=== PATIENT | female | born 1975 | race Caucasian/White ===

== ENCOUNTER 2018-04-20 08:28 | Emergency (ER) | payer OTHER ==
[~2018-04-20] VITALS: Ht 175.3 cm; Wt 59.5 kg
[~2018-04-20 08:28] MED LIST: ARIP1TAB5 PO; TAB-TAB PO; Z.0.BCPILL PO
[2018-04-20 08:37] VITALS: BP 108/74; PULSE 80; RESP 16; TEMP 98.3; O2SAT 97
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
[2018-04-20] MEDS ORDERED: IBUP1TAB7 PO (09:06)
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
[2018-04-20] MEDS ORDERED: ROBA750T PO (10:46)
[2018-04-20] MEDS ORDERED: MOBI15TA PO (10:46)
== END 2018-04-20 11:06 | disposition home or self-care (01) ==
LOC: PHED 08:28
DX: S16.1XXA Strain of muscle, fascia and tendon at neck level, initial encounter (principal); S39.012A Strain of muscle, fascia and tendon of lower back, initial encounter; S29.012A Strain of muscle and tendon of back wall of thorax, initial encounter; R51 Headache; V89.2XXA Person injured in unspecified motor-vehicle accident, traffic, initial encounter; G89.29 Other chronic pain; M54.9 Dorsalgia, unspecified; Z85.828 Personal history of other malignant neoplasm of skin
CPT/HCPCS: 70450; 72125; 72128; 72131; 99283

== ENCOUNTER 2018-05-02 11:19 | Emergency (ER) | payer OTHER ==
[~2018-05-02] VITALS: Ht 175.3 cm; Wt 59.0 kg
[~2018-05-02 11:19] MED LIST changes: -ARIP1TAB5 PO; +IBUP1TAB7 PO; +MOBI15TA PO; +ROBA750T PO; -TAB-TAB PO; -Z.0.BCPILL PO
[2018-05-02 11:32] VITALS: BP 134/83; PULSE 113; RESP 16; TEMP 98; O2SAT 97
--- NOTE | 2018-05-02 11:58 | PD ---
HPI Chief Complaint: Psychiatric Symptoms Time Seen by Provider: 11:38 Travel History International Travel<30 days: No Contact w/Intl Traveler<30days: No Traveled to known affect area: No History of Present Illness HPI 42-year-old female presents emergency department under the Villalobos act for reported suicidal ideation. Patient reportedly told someone incompetence last evening something that was misunderstood according to the patient. She denies suicidal or homicidal ideation at this time. She has no significant medical problems. She has no complaints medically. She is allergic to sulfa and codeine. PFSH Past Medical History Blood Disorders: No Cancer: Yes (SKIN) Cardiovascular Problems: No Diminished Hearing: No Endocrine: No Genitourinary: No Immune Disorder: No Implanted Vascular Access Dvce: No Musculoskeletal: Yes Neurologic: No Reproductive: No Respiratory: No ?: Unknown Past Surgical History Oral Surgery: Yes (wisdom teeth) Other Surgery: Yes (skin cancer removed from left side of face) Social History Alcohol Use: Yes (occas. wine) Tobacco Use: No Substance Use: No Allergies-Medications (Allergen,Severity, Reaction): Coded Allergies: Sulfa (Sulfonamide Antibiotics) (Unverified Allergy, Intermediate, HIVES, 04/20/18) codeine (Unverified Allergy, Mild, ELEVATED HEART RATE, 04/20/18) sulfamethoxazole (Verified Allergy, Unknown, Hives, 05/02/18) trimethoprim (Verified Allergy, Unknown, Hives, 05/02/18) Reported Meds & Prescriptions Reported Meds & Active Scripts Active Robaxin (Methocarbamol) 750 Mg Tab 750 Mg PO QID Mobic (Meloxicam) 15 Mg Tab 15 Mg PO DAILY Reported Ibuprofen 800 Mg Tab 800 Mg PO Q8H PRN Review of Systems Except as stated in HPI: all other systems reviewed are Neg General / Constitutional: No: Fever Eyes: No: Visual changes HENT: No: Headaches Cardiovascular: No: Chest Pain or Discomfort Respiratory: No: Shortness of Breath Gastrointestinal: No: Abdominal Pain Genitourinary: No: Dysuria Musculoskeletal: No: Pain Skin: No Rash Neurologic: No: Weakness Psychiatric: No: Depression Endocrine: No: Polydipsia Hematologic/Lymphatic: No: Easy Bruising Physical Exam Narrative GENERAL: Patient appears frustrated but otherwise in no acute distress. SKIN: Warm and dry. Normal color. Normal turgor. HEAD: Atraumatic. Normocephalic. EYES: Pupils equal and round. No scleral icterus. No injection or drainage. ENT: No nasal bleeding or discharge. Mucous membranes pink and moist. Pharynx is clear. Airways patent NECK: Trachea midline. No JVD. CARDIOVASCULAR: Regular rate and rhythm. RESPIRATORY: No accessory muscle use. Clear to auscultation. Breath sounds equal bilaterally. MUSCULOSKELETAL: Extremities without clubbing, cyanosis, or edema. No obvious deformities. NEUROLOGICAL: Awake and alert. No obvious cranial nerve deficits. Motor grossly within normal limits. Five out of 5 muscle strength in the arms and legs. Normal speech. PSYCHIATRIC: Appropriate mood and affect; insight and judgment normal. Data Data Last Documented VS Vital Signs Date Time Temp Pulse Resp B/P (MAP) Pulse Ox O2 Delivery O2 Flow Rate FiO2 05/02/18 11:32 98.0 113 16 134/83 (100) 97 Orders Orders Complete Blood Count With Diff (05/02/18 11:38) Comprehensive Metabolic Panel (05/02/18 11:38) Thyroid Stimulating Hormone (05/02/18 11:38) Urinalysis - C+S If Indicated (05/02/18 11:38) Psych Screen (05/02/18 11:38) Drug Screen, Random Urine (05/02/18 11:38) Alcohol (Ethanol) (05/02/18 11:38) MDM Medical Decision Making Medical Screen Exam Complete: Yes Emergency Medical Condition: Yes Differential Diagnosis Villalobos act. Suicidal ideation. Medical screening for psychiatric evaluation. Narrative Course Patient appears medically stable at time of exam. Labs ordered per protocol. Patient is medically cleared for psychiatric evaluation. Condition: Stable Daniel Robles May 02, 2018 11:57
[2018-05-02 12:58] LABS: AUTOMATED NEUTROPHIL # 5.7 TH/MM3 (1.8-7.7); BASOPHIL % 0.5 % (0.0-2.0); EOSINOPHIL % 0.6 % (0.0-4.0); HEMATOCRIT 38.5 % (35.0-46.0); LYMPHOCYTE # 1.2 TH/MM3 (1.0-4.8); MEAN CELL VOLUME 88.3 FL (80.0-100.0); MEAN CORPUSCULAR HEMOGLOBIN 29.8 PG (27.0-34.0); MEAN CORPUSCULAR HGB CONC 33.8 % (32.0-36.0); MONO % 6.8 % (0.0-8.0); MONOCYTE # 0.5 TH/MM3 (0-0.9); NEUT % 76.1 % (16.0-70.0); PLATELET COUNT 325 TH/MM3 (150-450); RED BLOOD COUNT 4.36 MIL/MM3 (4.00-5.30); RED CELL DISTRIBUTION WIDTH 14.5 % (11.6-17.2); WHITE BLOOD COUNT 7.4 TH/MM3 (4.0-11.0)
[2018-05-02 13:13] LABS: ALBUMIN 4.5 GM/DL (3.4-5.0); AST (GOT) 23 U/L (15-37); BICARBONATE 26.1 MEQ/L (21.0-32.0); BLOOD UREA NITROGEN 4 MG/DL (7-18); CALCIUM 9.2 MG/DL (8.5-10.1); CHLORIDE 104 MEQ/L (98-107); CREATININE 0.96 MG/DL (0.50-1.00); GLOMERULAR FILTRATION RATE 63 ML/MIN (>89); GLUCOSE,RANDOM 83 MG/DL (74-106); SODIUM (NA) 140 MEQ/L (136-145)
[2018-05-02 13:25] LABS: ALKALINE PHOSPHATASE 75 U/L (45-117); ALT (GPT) 25 U/L (10-53); TOTAL BILIRUBIN ADULT 0.4 MG/DL (0.2-1.0); TOTAL PROTEIN 8.2 GM/DL (6.4-8.2)
[2018-05-02 14:05] VITALS: BP 123/88; PULSE 81; RESP 18; TEMP 97.7; O2SAT 99
[2018-05-02 17:41] VITALS: BP 127/81; PULSE 75; RESP 16; O2SAT 100
[2018-05-02 18:54] LABS: BACTERIA, URINE MANY /hpf; BILIRUBIN, URINE NEG (NEG); BLOOD, URINE NEG (NEG); GLUCOSE,URINE NEG (NEG); KETONE, URINE NEG (NEG); NITRITE,URINE NEG (NEG); SQUAMOUS EPITHELIAL CELL URINE 1 /hpf (0-5); URINE COLOR LIGHT-YELLOW (YELLW/STRAW); URINE LEUKOCYTE ESTERASE NEG (NEG)
[2018-05-02 22:22] VITALS: BP 134/83; PULSE 75; RESP 18; O2SAT 98
[2018-05-03 02:14] VITALS: BP 110/73; PULSE 64; RESP 20; O2SAT 97
[2018-05-03 06:27] VITALS: BP 125/80; PULSE 83; RESP 18; O2SAT 98
--- NOTE | 2018-05-03 10:08 | PD ---
Physical Exam Date Seen by Provider: May 03, 2018 Time Seen by Provider: 10:05 Narrative 42-year-old female previously medically cleared for psychiatric evaluation under the Villalobos act, has been evaluated by psychiatric staff and deemed stable for discharge at this time. Patient remains medically stable for discharge. Follow-up will be based on psychiatric note. Data Data Last Documented VS Vital Signs Date Time Temp Pulse Resp B/P (MAP) Pulse Ox O2 Delivery O2 Flow Rate FiO2 05/03/18 06:27 83 18 125/80 (95) 98 Room Air 05/02/18 14:05 97.7 Orders Orders Complete Blood Count With Diff (05/02/18 11:38) Comprehensive Metabolic Panel (05/02/18 11:38) Thyroid Stimulating Hormone (05/02/18 11:38) Urinalysis - C+S If Indicated (05/02/18 11:38) Psych Screen (05/02/18 11:38) Drug Screen, Random Urine (05/02/18 11:38) Alcohol (Ethanol) (05/02/18 11:38) Diet Regular Basic (05/02/18 Dinner) Urine Culture (05/02/18 18:15) Diet Regular Basic (05/03/18 Breakfast) Labs Laboratory Tests Test 05/02/18 12:50 05/02/18 18:15 White Blood Count 7.4 TH/MM3 Red Blood Count 4.36 MIL/MM3 Hemoglobin 13.0 GM/DL Hematocrit 38.5 % Mean Corpuscular Volume 88.3 FL Mean Corpuscular Hemoglobin 29.8 PG Mean Corpuscular Hemoglobin Concent 33.8 % Red Cell Distribution Width 14.5 % Platelet Count 325 TH/MM3 Mean Platelet Volume 7.0 FL Neutrophils (%) (Auto) 76.1 % Lymphocytes (%) (Auto) 16.0 % Monocytes (%) (Auto) 6.8 % Eosinophils (%) (Auto) 0.6 % Basophils (%) (Auto) 0.5 % Neutrophils # (Auto) 5.7 TH/MM3 Lymphocytes # (Auto) 1.2 TH/MM3 Monocytes # (Auto) 0.5 TH/MM3 Eosinophils # (Auto) 0.0 TH/MM3 Basophils # (Auto) 0.0 TH/MM3 CBC Comment DIFF FINAL Differential Comment Blood Urea Nitrogen 4 MG/DL Creatinine 0.96 MG/DL Random Glucose 83 MG/DL Total Protein 8.2 GM/DL Albumin 4.5 GM/DL Calcium Level 9.2 MG/DL Alkaline Phosphatase 75 U/L Aspartate Amino Transf (AST/SGOT) 23 U/L Alanine Aminotransferase (ALT/SGPT) 25 U/L Total Bilirubin 0.4 MG/DL Sodium Level 140 MEQ/L Potassium Level 4.3 MEQ/L Chloride Level 104 MEQ/L Carbon Dioxide Level 26.1 MEQ/L Anion Gap 10 MEQ/L Estimat Glomerular Filtration Rate 63 ML/MIN Thyroid Stimulating Hormone 3rd Gen 1.080 uIU/ML Ethyl Alcohol Level LESS THAN 3 MG/DL Urine Color LIGHT-YELLOW Urine Turbidity CLEAR Urine pH 6.0 Urine Specific [place] 1.005 Urine Protein NEG mg/dL Urine Glucose (UA) NEG mg/dL Urine Ketones NEG mg/dL Urine Occult Blood NEG Urine Nitrite NEG Urine Bilirubin NEG Urine Urobilinogen LESS THAN 2.0 MG/DL Urine Leukocyte Esterase NEG Urine RBC 1 /hpf Urine WBC 3 /hpf Urine Squamous Epithelial Cells 1 /hpf Urine Bacteria MANY /hpf Microscopic Urinalysis Comment CULTURE INDICATED Urine Opiates Screen NEG Urine Barbiturates Screen NEG Urine Amphetamines Screen NEG Urine Benzodiazepines Screen NEG Urine Cocaine Screen NEG Urine Cannabinoids Screen NEG MDM Medical Record Reviewed: Yes Supervised Visit with GRACE: Yes Narrative Course 42-year-old female previously medically cleared for psychiatric evaluation under the Villalobos act, has been evaluated by psychiatric staff and deemed stable for discharge at this time. Patient remains medically stable for discharge. Follow-up will be based on psychiatric note. Diagnosis Primary Impression: PTSD (post-traumatic stress disorder) Patient Instructions: General Instructions Departure Forms: Tests/Procedures Disposition: DISCHARGE HOME Condition: Stable Daniel Robles May 03, 2018 10:08
--- NOTE | 2018-05-03 10:35 | PD ---
History of Present Illness Chief Complaint: Psychiatric Symptoms/ BA Time Seen by Provider: 09:45 Travel History International Travel<30 Days: No Contact w/Intl Traveler<30days: No Known affected area: No Legal Status Legal Status: Villal[place] Act Vill[place] Act Signed By: Rodrigo Guevara Villalobos Act Comment: OFFICER PRIYANKA History of Present Illness: History of Present Illness HPI 42-year-old , female with past psychiatric history of adjustment disorder, PTSD, possible bipolar affective disorder, presents emergency department under the Villalobos act initiated by law enforcement for reported suicidal ideation. Patient alleges that she called a friend yesterday to get some support and that the friend misunderstood what she shared with her, called the police for her well-being check and when the police arrived they found her crying and placed her under a Villalobos act. The Villalobos act alleges that she made suicidal statements. Patient denies that she made any statements indicating that she wanted to hurt herself. She does admit that when the officer asked her if she ever thought about harming herself she did admit that at times she has had thoughts but denies that she has ever had any plans to harm herself. EMR is reviewed. The patient has one previous admission to our inpatient psychiatric unit in 2014. At that time she was also under Villalobos act after she was found driving erratically at high speeds. At the time Dr. Hazel suspected bipolar presentation. No previous suicide attempts. Toxicology is negative. Patient was monitored in secure environment overnight and presented no behavioral concerns and no suicidality. Patient is seen. Nurses Dawna is present. Patient is alert, oriented, maintaining hygiene. Her speech is fast but not pressured and she tends to be overelaborate in her responses. There is no evidence of any psychosis, no carla or hypomania. She is quite discharge focus. She states" I do not want to harm myself and I do not want to harm anybody else. It is not a crime to cry. I already have an appointment with my therapist on ." She reports medication compliance with current prescribed Lamictal. The patient continues to deny any suicidal or homicidal ideation, intent or plan. She denies significant symptoms of depression. Reports she is sleeping well and eating well. PFSH Past Medical History Blood Disorders: No Cancer: Yes (SKIN) Cardiovascular Problems: No Diminished Hearing: No Endocrine: No Genitourinary: No Immune Disorder: No Implanted Vascular Access Dvce: No Musculoskeletal: Yes Neurologic: No Reproductive: No Respiratory: No Tetanus Vaccination: < 5 Years ?: Unknown Past Surgical History Oral Surgery: Yes (wisdom teeth) Other Surgery: Yes (skin cancer removed from left side of face) Psychiatric History Psychiatric History Hx Psychiatric Treatment: 1 previous psychiatric admission in 2014. Currently sees Dr. Loza. Also sees a psychotherapist. Reports compliance with prescribed medication. Reports she was diagnosed with PTSD related to incidents while she was in the [place] but will not disclose such incidents. No previous history of suicide attempts. History of Inpatient Treatment: Yes Guns or firearms in home: No Social History Patient is divorce since 2014. She has been 3 times. She is college educated. States she is completing her master's degree. She lives by herself. 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 She reports she attends our [employer]. Patient reports that she is a [place] and receives care at [facility] Hx Alcohol Use: Yes (occas. wine) Hx Tobacco Use: No Hx Substance Use: No Hx of Substance Use Treatment: No Family Psychiatric History Negative Allergies-Medications (Allergen,Severity, Reaction): Coded Allergies: Sulfa (Sulfonamide Antibiotics) (Unverified Allergy, Intermediate, HIVES, 04/20/18) codeine (Unverified Allergy, Mild, ELEVATED HEART RATE, 04/20/18) sulfamethoxazole (Verified Allergy, Unknown, Hives, 05/02/18) trimethoprim (Verified Allergy, Unknown, Hives, 05/02/18) Reported Meds & Prescriptions Reported Meds & Active Scripts Active Robaxin (Methocarbamol) 750 Mg Tab 750 Mg PO QID Mobic (Meloxicam) 15 Mg Tab 15 Mg PO DAILY Reported Ibuprofen 800 Mg Tab 800 Mg PO Q8H PRN Review of Systems Psychiatric: COMPLAINS OF: Depression, DENIES: Anxiety, Confusion, Mood changes , Hallucinations, Agitation, Suicidal Ideation, Homicidal Ideation, Delusions Except as stated in HPI: all other systems reviewed are Neg Mental Status Examination Appearance: Appropriate Consciousness: Alert Orientation: x4 Motor Activity: Normal gait Speech: Rapid Language: Adequate Fund of Knowledge: Adequate Attention and Concentration: Adequate Memory: Unremarkable Mood: Sad Affect: Appropriate Thought Process & Associations: Intact, Logical, Goal directed Thought Content: Appropriate Hallucination Type: None Delusion Type: None Suicidal Ideation: No Suicidal Plan: No Suicidal Intention: No Homicidal Ideation: No Homicidal Plan: No Homicidal Intention: No Insight: Fair Judgment: Adequate MDM Medical Decision Making Medical Record Reviewed: Yes Assessment/Plan 42-year-old , female with past psychiatric history of adjustment disorder, PTSD, possible bipolar affective disorder, presents emergency department under the Villalobos act initiated by law enforcement for reported suicidal ideation. Patient alleges that she called a friend yesterday to get some support and that the friend misunderstood what she shared with her, called the police for her well-being check and when the police arrived they found her crying and placed her under a Villalobos act. The Villalobos act alleges that she made suicidal statements. Patient was monitored in [facility] and presented no behavioral concerns and no suicidality. Upon psychiatric evaluation the patient continues to deny any suicidal or homicidal ideation, intent or plan. She does not present any psychosis or carla. She is requesting to be discharged and I have no criteria to keep her here against her will. She is future oriented with adequate protective factors. She has an appointment with her therapist next and will follow up as well with her outpatient psychiatrist Dr. Loza. She contracts for safety as a general safety plan and agrees to return to the ED if any changes. The Villalobos act as lifted. Psychiatric clear for discharge from the ED. Orders Orders Complete Blood Count With Diff (05/02/18 11:38) Comprehensive Metabolic Panel (05/02/18 11:38) Thyroid Stimulating Hormone (05/02/18 11:38) Urinalysis - C+S If Indicated (05/02/18 11:38) Psych Screen (05/02/18 11:38) Drug Screen, Random Urine (05/02/18 11:38) Alcohol (Ethanol) (05/02/18 11:38) Diet Regular Basic (05/02/18 Dinner) Urine Culture (05/02/18 18:15) Diet Regular Basic (05/03/18 Breakfast) Ed Discharge Order (05/03/18 10:08) Results Vital Signs Date Time Temp Pulse Resp B/P (MAP) Pulse Ox O2 Delivery O2 Flow Rate FiO2 05/03/18 06:27 83 18 125/80 (95) 98 Room Air 05/03/18 02:14 64 20 110/73 (85) 97 05/02/18 22:22 75 18 134/83 (100) 98 Room Air 05/02/18 17:42 05/02/18 17:41 75 16 127/81 (96) 100 Room Air 05/02/18 15:50 05/02/18 14:05 97.7 81 18 123/88 (100) 99 Room Air 05/02/18 11:32 98.0 113 16 134/83 (100) 97 Laboratory Tests Test 05/02/18 12:50 05/02/18 18:15 White Blood Count 7.4 Red Blood Count 4.36 Hemoglobin 13.0 Hematocrit 38.5 Mean Corpuscular Volume 88.3 Mean Corpuscular Hemoglobin 29.8 Mean Corpuscular Hemoglobin Concent 33.8 Red Cell Distribution Width 14.5 Platelet Count 325 Mean Platelet Volume 7.0 Neutrophils (%) (Auto) 76.1 Lymphocytes (%) (Auto) 16.0 Monocytes (%) (Auto) 6.8 Eosinophils (%) (Auto) 0.6 Basophils (%) (Auto) 0.5 Neutrophils # (Auto) 5.7 Lymphocytes # (Auto) 1.2 Monocytes # (Auto) 0.5 Eosinophils # (Auto) 0.0 Basophils # (Auto) 0.0 CBC Comment DIFF FINAL Differential Comment Blood Urea Nitrogen 4 Creatinine 0.96 Random Glucose 83 Total Protein 8.2 Albumin 4.5 Calcium Level 9.2 Alkaline Phosphatase 75 Aspartate Amino Transf (AST/SGOT) 23 Alanine Aminotransferase (ALT/SGPT) 25 Total Bilirubin 0.4 Sodium Level 140 Potassium Level 4.3 Chloride Level 104 Carbon Dioxide Level 26.1 Anion Gap 10 Estimat Glomerular Filtration Rate 63 Thyroid Stimulating Hormone 3rd Gen 1.080 Ethyl Alcohol Level LESS THAN 3 Urine Color LIGHT-YELLOW Urine Turbidity CLEAR Urine pH 6.0 Urine Specific [place] 1.005 Urine Protein NEG Urine Glucose (UA) NEG Urine Ketones NEG Urine Occult Blood NEG Urine Nitrite NEG Urine Bilirubin NEG Urine Urobilinogen LESS THAN 2.0 Urine Leukocyte Esterase NEG Urine RBC 1 Urine WBC 3 Urine Squamous Epithelial Cells 1 Urine Bacteria MANY Microscopic Urinalysis Comment CULTURE INDICATED Urine Opiates Screen NEG Urine Barbiturates Screen NEG Urine Amphetamines Screen NEG Urine Benzodiazepines Screen NEG Urine Cocaine Screen NEG Urine Cannabinoids Screen NEG Date/Time Source Procedure Growth Status 05/02/18 18:15 Urine Random Urine Urine Culture Pending Received Diagnosis Primary Impression: PTSD (post-traumatic stress disorder) Additional Impression: Adjustment disorder Psychiatrically Cleared: Yes Departure Forms: Tests/Procedures Patient Instructions: General Instructions, Suicide Prevention for Adults (ED) Additional Instructions: Follow up with Dr. Loza and counselor. Follow up with primary care doctor as needed. Return for any worsening. Disposition: 01 DISCHARGE HOME Condition: Stable Problem Qualifiers Additional Impression: Adjustment disorder Qualified Codes: F43.23 - Adjustment disorder with mixed anxiety and depressed mood Diamante Hernandez May 03, 2018 10:35
== END 2018-05-03 11:06 | disposition home or self-care (01) ==
LOC: NEPJ 11:19
DX: F43.10 Post-traumatic stress disorder, unspecified (principal); F43.20 Adjustment disorder, unspecified; Z79.899 Other long term (current) drug therapy; Z88.2 Allergy status to sulfonamides; Z88.5 Allergy status to narcotic agent; Z88.8 Allergy status to other drugs, medicaments and biological substances
CPT/HCPCS: 80053; 80307; 81001; 84443; 85025; 87086; 99283